=== PATIENT | female | born 1950 | race Caucasian/White ===

== ENCOUNTER 2021-03-28 22:12 | Emergency (ER) | payer MEDICARE ==
[~2021-03-28] VITALS: Ht 162.6 cm; Wt 90.7 kg
[2021-03-28] MEDS ORDERED: ACETAMINOPHEN 325 MG TAB PO ONE (23:00)
[2021-03-28] MEDS ORDERED: ONDANSETRON HCL 4 MG ORAL DISINTEGRATING TAB PO ONE (23:30)
[2021-03-29 00:49] LABS: BASOPHILS % 0.3 % (0.0-1.0); EOSINOPHILS # (AUTO) 0.2 (0.0-0.4); EOSINOPHILS % 1.6 % (0.0-6.0); HEMOGLOBIN 10.7 g/dL (12.0-16.0); LYMPHOCYTES % 8.4 % (18.0-39.1); MEAN CORPUSCULAR HEMOGLOBIN 26.2 pg (28-32); MEAN CORPUSCULAR HGB CONC 30.6 g/dL (31-35); MEAN CORPUSCULAR VOLUME 85.6 fL (81-99); MONOCYTES # (AUTO) 0.5 (0.2-0.8); MONOCYTES % 3.9 % (4.4-11.3); NEUTROPHILS # (AUTO) 10.1 (2.1-6.9); NEUTROPHILS % 85.3 % (38.7-80.0); PLATELET COUNT 337 x10e3/uL (140-360); RED BLOOD COUNT 4.09 x10e6/uL (3.6-5.1); RED CELL DISTRIBUTION WIDTH 17.6 % (11.7-14.4)
[2021-03-29 00:58] LABS: INR 0.96; PROTHROMBIN TIME 13.2 seconds (11.9-14.5)
[2021-03-29 01:06] LABS: ALBUMIN 3.9 g/dL (3.5-5.0); ANION GAP 15.5 mmol/L (8-16); CALCIUM 9.2 mg/dL (8.4-10.2); CREATININE, SERUM 0.81 mg/dL (0.57-1.11); POTASSIUM 3.5 mmol/L (3.5-5.1)
== END 2021-03-29 03:13 | disposition other institution (70) ==
LOC: ER 22:50
DX: I60.8 Other nontraumatic subarachnoid hemorrhage (principal); R51.9 Headache, unspecified; M54.2 Cervicalgia; E11.65 Type 2 diabetes mellitus with hyperglycemia; I10 Essential (primary) hypertension; Z20.822 Contact with and (suspected) exposure to COVID-19; Z98.84 Bariatric surgery status
CPT/HCPCS: 36415; 70450; 72125; 80053; 85025; 85610; 85730; 99284; Q0162; U0002

== ENCOUNTER 2021-12-26 05:37 | Emergency (ER) | payer MEDICARE, OTHER ==
[~2021-12-26] VITALS: Ht 162.6 cm; Wt 90.7 kg
== END 2021-12-26 07:14 | disposition home or self-care (01) ==
LOC: FSED 05:45
DX: S01.01XA Laceration without foreign body of scalp, initial encounter (principal); I10 Essential (primary) hypertension; E11.9 Type 2 diabetes mellitus without complications; W01.0XXA Fall on same level from slipping, tripping and stumbling without subsequent striking against object, initial encounter; Z88.1 Allergy status to other antibiotic agents; Z88.2 Allergy status to sulfonamides
CPT/HCPCS: 70450; 99283

== ENCOUNTER 2022-01-06 14:06 | Emergency (ER) | payer MEDICARE ==
[~2022-01-06] VITALS: Ht 162.6 cm; Wt 90.7 kg
== END 2022-01-06 15:20 | disposition home or self-care (01) ==
LOC: FSED 15:12
DX: Z48.02 Encounter for removal of sutures (principal)
CPT/HCPCS: 99282